=== PATIENT | female | born 2000 | race Hispanic/Latino ===

== ENCOUNTER 2018-07-28 12:51 | Emergency (ER) | payer SELFPAY ==
[2018-07-28 13:43] LABS: APPEARANCE,URINE Cloudy (CLEAR); BILIRUBIN,URINE Negative (NEGATIVE); COLOR,URINE Yellow (YELLOW); GLUCOSE, URINE (UA) Negative (NEGATIVE); KETONES,URINE Trace mg/dL (NEGATIVE); LEUKOCYTE ESTERASE ,URINE Large (NEGATIVE); NITRATE,URINE Negative (NEGATIVE); OCCULT BLOOD,URINE Large (NEGATIVE); PROTEIN,URINE POS 2+ (NEGATIVE); UROBILINOGEN,URINE 0.2 mg/dL (0.2-1.0)
[2018-07-28 13:52] LABS: HCG,QUAL RESULT NEGATIVE (NEGATIVE)
[2018-07-28 14:16] LABS: RBC,URINE TNTC /HPF (0-1); WBC,URINE 51-100 /HPF (0-1)
[2018-07-28 14:17] LABS: BACTERIA,URINE Few /HPF (None Seen); SQUAMOUS EPITHELIAL CELL,UR Rare /HPF (0-2)
== END 2018-07-28 14:23 | disposition home or self-care (01) ==
LOC: EDH 12:51
DX: N39.0 Urinary tract infection, site not specified (principal); M54.5 Low back pain; J45.909 Unspecified asthma, uncomplicated; Z98.890 Other specified postprocedural states
CPT/HCPCS: 81001; 81025